=== PATIENT | female | born 1955 | race Caucasian/White ===

== ENCOUNTER → 2016-09-20 | Outpatient (CLI) | payer OTHER ==
[~2016-09-20] MED LIST: CANA100T PO; DOCU-30 PO; ENAL20TA PO; FURO20TA3 PO; HYDR-3138 PO; LEVO137T2 PO; LEVO150T5 PO; LEVO200T5 PO; LEVO750T26 PO; LOVA20TA2 PO; METF500T4 PO; MIRAL; Miralax; NAPR1TAB25 PO; OMNIPAQUE 350 MG/ML, 100ML BOTTLE ONE; OXYC-302 PO; POLY17PO5 PO; POTA8TAB6 PO; will bring a list
== END | disposition home or self-care (01) ==
LOC: CFH 09:33
PROVIDERS: ATTEND Internal Medicine Hematology & Oncology
DX: C18.7 Malignant neoplasm of sigmoid colon (principal); I31.3 Pericardial effusion (noninflammatory); N13.2 Hydronephrosis with renal and ureteral calculous obstruction; Z90.49 Acquired absence of other specified parts of digestive tract
CPT/HCPCS: 71260; 74177; Q9967

== ENCOUNTER 2018-05-08 12:06 | Observation (INO) | payer BC ==
[~2018-05-08] VITALS: Ht 172.7 cm; Wt 77.2 kg
[~2018-05-08 12:06] MED LIST changes: +DOCU-131 PO; -DOCU-30 PO; -HYDR-3138 PO; +HYDR-3237 PO; +METF500T17 PO; -METF500T4 PO; -OMNIPAQUE 350 MG/ML, 100ML BOTTLE ONE
[2018-05-08 13:52] LABS: BASOPHILS # (AUTO) 0.03 x10^3/uL (0-0.1); BASOPHILS % (AUTO) 1 % (0-1); EOSINOPHILS # (AUTO) 0.04 x10^3/uL (0-0.4); EOSINOPHILS % (AUTO) 1 % (1-7); LYMPHOCYTES # (AUTO) 0.91 x10^3/uL (1-3.4); LYMPHOCYTES % (AUTO) 20 % (22-44); MD NO; MEAN CORPUSCULAR HEMOGLOBIN 26.5 pg (27.0-34.8); MEAN CORPUSCULAR HGB CONC 32.4 g/dL (32.4-35.8); MEAN CORPUSCULAR VOLUME 81.9 fL (80-100); MEAN PLATELET VOLUME 7.1 fL (7.4-10.4); MONOCYTES # (AUTO) 0.31 x10^3/uL (0.2-0.8); MONOCYTES % (AUTO) 7 % (2-9); NEUTROPHILS # (AUTO) 3.33 x10^3/uL (1.8-6.8); NEUTROPHILS % (AUTO) 72 % (42-75); PLATELET COUNT 274 x10^3/uL (130-400); RED BLOOD COUNT 3.02 x10^6/uL (3.82-5.3)
[2018-05-08 14:02] LABS: ALBUMIN 2.9 g/dL (3.4-5.0); ANION GAP 6 mmol/L (5-15); CALCIUM 7.7 mg/dL (8.5-10.1); CHLORIDE 110 mmol/L (98-107)
[2018-05-08 14:03] LABS: INTERNATIONAL NORMALIZED RATIO 1.07 (0.93-1.1); PROTHROMBIN TIME 11.2 Seconds (9.6-11.5)
--- NOTE | 2018-05-08 14:03 | NUR ---
pt to ed for large draining wound to lower right abd. pt states she's had a scab in the area for "months" but it recently started bleeding and draining. connected to monitors. vss. edmd assessment complete. orders received. awaiting ct.
[2018-05-08 14:06] LABS: ALANINE AMINOTRANSFERASE 11 U/L (12-78); ALKALINE PHOSPHATASE 88 U/L (45-117); BILIRUBIN,TOTAL 0.3 mg/dL (0.2-1.0); CREATININE 1.11 mg/dL (0.55-1.02); TOTAL PROTEIN 6.5 g/dL (6.4-8.2)
[2018-05-08] MEDS ORDERED: POTASSIUM CHLORIDE 20 MEQ TAB.ER.PRT ONE (14:27)
[2018-05-08] MEDS ORDERED: POTASSIUM CHLORIDE 20 MEQ TAB.ER.PRT PO ONE (14:30)
--- NOTE | 2018-05-08 14:55 | NUR ---
pt medicated per may. pt taken to ct at this time.
--- NOTE | 2018-05-08 15:11 | NUR ---
pt back from imaging
[2018-05-08] MEDS ORDERED: OMNIPAQUE 350 MG/ML, 100ML BOTTLE ONE (15:13)
--- NOTE | 2018-05-08 15:19 | NUR ---
Note tim in EDM - 05/08/18 at 1520 by [email or web address] pt reports no nausea after zofran. us at bedside. vss. no neesd at this time.
--- NOTE | 2018-05-08 15:20 | NUR ---
pt resting in bed. vss. no needs at this time.
--- NOTE | 2018-05-08 15:29 | NUR ---
all results back at this time. chart up for recheck.
--- NOTE | 2018-05-08 16:17 | NUR ---
hospitalist at bedside. vss. no needs at this time.
[2018-05-08] MEDS ORDERED: MORPHINE SULFATE 4 MG/ML, 1ML ONE (16:18)
--- NOTE | 2018-05-08 16:20 | NUR ---
report to nellie diaz. pt ready for transport.
[2018-05-08] MEDS ORDERED: ACETAMINOPHEN 325 MG TABLET PO PRN (17:00)
[2018-05-08] MEDS ORDERED: LORazepam 2 MG/ML, 1ML IVPush PRN (17:00)
[2018-05-08] MEDS ORDERED: morphine SULFATE 10 MG/ML, 1ML IVPush PRN (17:00)
[2018-05-08] MEDS ORDERED: hydrALAzine 20 MG/ML, 1ML IV PRN (17:00)
[2018-05-08] MEDS ORDERED: ONDANSETRON ODT 4 MG PO PRN (17:00)
[2018-05-08] MEDS ORDERED: ONDANSETRON 2MG/ML, 2ML IVPush PRN (17:00)
[2018-05-08] MEDS: ENOXAPARIN 40 MG/0.4 ML SQ SCH (17:00)
[2018-05-08] MEDS: NS + 20MEQ KCL 1,000 ML IV SCH (18:26)
[2018-05-08 18:37] VITALS: BP 137/81
[2018-05-09] MEDS: NS + 20MEQ KCL 1,000 ML IV SCH ×2 (05:50→20:10)
[2018-05-09 06:29] LABS: BASOPHILS # (AUTO) 0.03 x10^3/uL (0-0.1); BASOPHILS % (AUTO) 1 % (0-1); EOSINOPHILS % (AUTO) 4 % (1-7); LYMPHOCYTES # (AUTO) 1.14 x10^3/uL (1-3.4); LYMPHOCYTES % (AUTO) 21 % (22-44); MD NO; MEAN CORPUSCULAR HEMOGLOBIN 26.4 pg (27.0-34.8); MEAN CORPUSCULAR VOLUME 82.6 fL (80-100); MEAN PLATELET VOLUME 7.3 fL (7.4-10.4); MONOCYTES # (AUTO) 0.38 x10^3/uL (0.2-0.8); MONOCYTES % (AUTO) 7 % (2-9); NEUTROPHILS # (AUTO) 3.63 x10^3/uL (1.8-6.8); NEUTROPHILS % (AUTO) 67 % (42-75); PLATELET COUNT 265 x10^3/uL (130-400); RED BLOOD COUNT 3.07 x10^6/uL (3.82-5.3); RED CELL DISTRIBUTION WIDTH 17.3 % (9.6-15.2)
[2018-05-09 06:38] LABS: ALANINE AMINOTRANSFERASE 13 U/L (12-78); ANION GAP 6 mmol/L (5-15); CALCIUM 7.9 mg/dL (8.5-10.1); CHLORIDE 111 mmol/L (98-107)
[2018-05-09 06:40] LABS: ALKALINE PHOSPHATASE 88 U/L (45-117); BILIRUBIN,TOTAL 0.2 mg/dL (0.2-1.0); CREATININE 1.06 mg/dL (0.55-1.02); TOTAL PROTEIN 6.5 g/dL (6.4-8.2)
[2018-05-09] MEDS: FUROSEMIDE 20 MG TABLET PO SCH (08:18)
[2018-05-09] MEDS: LEVOTHYROXINE 137 MCG TABLET PO SCH (08:18)
[2018-05-09] MEDS: POTASSIUM CHLORIDE 20 MEQ TAB.ER.PRT PO SCH ×2 (08:19→18:17)
[2018-05-09] MEDS: ENALAPRIL 20MG TABLET PO SCH (08:19)
[2018-05-09 09:15] VITALS: BP 150/89
[2018-05-09 14:45] VITALS: BP 151/85
[2018-05-09] MEDS: ENOXAPARIN 40 MG/0.4 ML SQ SCH (17:00)
[2018-05-09 18:36] VITALS: BP 151/85
[2018-05-09] MEDS: OXYcodone IR 5MG TABLET PO PRN (21:32)
[2018-05-10 01:15] VITALS: BP 128/80
[2018-05-10] MEDS: OXYcodone IR 5MG TABLET PO PRN ×2 (01:42→07:59)
[2018-05-10 07:42] VITALS: BP 125/76
[2018-05-10] MEDS: ENALAPRIL 20MG TABLET PO SCH (07:59)
[2018-05-10] MEDS: POTASSIUM CHLORIDE 20 MEQ TAB.ER.PRT PO SCH (07:59)
[2018-05-10] MEDS: FUROSEMIDE 20 MG TABLET PO SCH (07:59)
[2018-05-10] MEDS: LEVOTHYROXINE 137 MCG TABLET PO SCH (07:59)
[2018-05-10] MEDS: NS + 20MEQ KCL 1,000 ML IV SCH (09:30)
[2018-05-10 13:10] VITALS: BP 113/72
== END 2018-05-10 12:54 | disposition home or self-care (01) ==
LOC: ED 15:49 → 3NW 16:23 → EDIP 16:43 → ED 17:09 → 3NW 17:10
PROVIDERS: ADMIT Internal Medicine; ATTEND Internal Medicine
DX: C18.9 Malignant neoplasm of colon, unspecified (principal); C78.00 Secondary malignant neoplasm of unspecified lung; C78.7 Secondary malignant neoplasm of liver and intrahepatic bile duct; E03.9 Hypothyroidism, unspecified; E11.9 Type 2 diabetes mellitus without complications; E78.5 Hyperlipidemia, unspecified; I10 Essential (primary) hypertension; D63.8 Anemia in other chronic diseases classified elsewhere; I31.3 Pericardial effusion (noninflammatory); N13.2 Hydronephrosis with renal and ureteral calculous obstruction; N26.1 Atrophy of kidney (terminal); Z51.5 Encounter for palliative care; Z83.3 Family history of diabetes mellitus; Z85.038 Personal history of other malignant neoplasm of large intestine; Z90.49 Acquired absence of other specified parts of digestive tract; Z92.21 Personal history of antineoplastic chemotherapy
CPT/HCPCS: 36415; 74177; 80053; 85025; 85610; 85730; 86850; 86900; 96374; 96375; 99284; G0378; J2270; J2405; J3480; Q9967